=== PATIENT | female | born 1980 | race Caucasian/White ===

== ENCOUNTER 2016-04-07 19:38 | Emergency (ER) | payer SELFPAY ==
[~2016-04-07] VITALS: Ht 165.1 cm; Wt 57.6 kg
[2016-04-07 20:11] LABS: KETONES,URINE 40 (NEGATIVE); LEUKOCYTE ESTERASE ,URINE Negative (NEGATIVE); PH,URINE 5.5 (5.0-8.0)
[2016-04-07 20:12] LABS: ADD UA MICROSCOPIC YES; PREGNANCY TEST URINE QUAL POSITIVE (NEGATIVE)
[2016-04-07 20:14] LABS: ADD URINE CULTURE NO; WBC,URINE 0-2 /HPF (0-3)
[2016-04-07 20:28] LABS: BASOPHILS # (AUTO) 0.1 /CMM (0.0-0.2); BASOPHILS % (AUTO) 0.6 % (0.0-2.0); DIFF TOTAL % 100 %; EOSINOPHILS # (AUTO) 0.1 /CMM (0.0-0.7); EOSINOPHILS % (AUTO) 0.8 % (0.0-6.0); HEMATOCRIT 37 % (33-45); HEMOGLOBIN 12.9 g/dL (11.5-14.8); LYMPHOCYTES # (AUTO) 1.8 /CMM (0.8-4.8); LYMPHOCYTES % (AUTO) 18.8 % (20.0-44.0); MEAN CORPUSCULAR HEMOGLOBIN 31 PG (26.0-33.0); MEAN CORPUSCULAR HGB CONC 35 g/dl (31.0-36.0); MEAN CORPUSCULAR VOLUME 88 fL (82-100); MONOCYTES # (AUTO) 0.4 /CMM (0.1-1.30); MONOCYTES % (AUTO) 4.6 % (2.0-12.0); NEUTROPHILS # (AUTO) 7.2 /CMM (1.8-8.9); NEUTROPHILS % (AUTO) 75.2 % (43.0-81.0); PLATELET COUNT (AUTO) 180 /CMM (150-450); RED BLOOD CELL COUNT(AUTO) 4.21 MIL/uL (4.0-5.2); WHITE BLOOD COUNT (AUTO) 9.6 K/uL (4.3-11.0)
[2016-04-07] MEDS ORDERED: ACETAMINOPHEN 325 MG TABLET PO ONE (20:30)
[2016-04-07] MEDS ORDERED: ACETAMINOPHEN ES 500 MG TABLET ONE (20:33)
[2016-04-07 20:41] LABS: INR 1.06 (0.87-1.13); PROTHROMBIN TIME 11.1 SECS (9.5-12.7)
[2016-04-07 22:37] VITALS: BP 121/77
== END 2016-04-07 22:38 | disposition home or self-care (01) ==
LOC: ER 19:41
DX: O20.8 Other hemorrhage in early pregnancy (principal); R10.2 Pelvic and perineal pain
CPT/HCPCS: 36415; 76856; 81001; 84702; 84703 ×2; 85025; 85730; 99285; A4606; Z7610; 81000-TC

== ENCOUNTER 2016-04-09 19:27 | Emergency (ER) | payer MEDICAID ==
[~2016-04-09] VITALS: Ht 165.1 cm; Wt 52.2 kg
[2016-04-09 19:54] LABS: BASOPHILS # (AUTO) 0.1 /CMM (0.0-0.2); BASOPHILS % (AUTO) 0.7 % (0.0-2.0); DIFF TOTAL % 100 %; EOSINOPHILS # (AUTO) 0.2 /CMM (0.0-0.7); EOSINOPHILS % (AUTO) 1.4 % (0.0-6.0); HEMATOCRIT 45 % (33-45); HEMOGLOBIN 15.3 g/dL (11.5-14.8); LYMPHOCYTES # (AUTO) 2.4 /CMM (0.8-4.8); LYMPHOCYTES % (AUTO) 20.3 % (20.0-44.0); MEAN CORPUSCULAR HEMOGLOBIN 30 PG (26.0-33.0); MEAN CORPUSCULAR HGB CONC 34 g/dl (31.0-36.0); MEAN CORPUSCULAR VOLUME 88 fL (82-100); MONOCYTES # (AUTO) 0.7 /CMM (0.1-1.30); MONOCYTES % (AUTO) 5.6 % (2.0-12.0); NEUTROPHILS # (AUTO) 8.6 /CMM (1.8-8.9); PLATELET COUNT (AUTO) 228 /CMM (150-450); RED BLOOD CELL COUNT(AUTO) 5.11 MIL/uL (4.0-5.2)
[2016-04-09 20:10] VITALS: BP 132/78
== END 2016-04-09 20:30 | disposition home or self-care (01) ==
LOC: ER 19:36
DX: N93.9 Abnormal uterine and vaginal bleeding, unspecified (principal)
CPT/HCPCS: 36415; 84702; 85025; 99284; A4606; Z7610

== ENCOUNTER 2016-04-11 22:36 | Emergency (ER) | payer MEDICAID ==
[~2016-04-11] VITALS: Ht 162.6 cm; Wt 57.6 kg
[2016-04-12 01:14] VITALS: BP 114/80
== END 2016-04-12 01:16 | disposition home or self-care (01) ==
LOC: ER 22:38
DX: O03.4 Incomplete spontaneous abortion without complication (principal); Z90.79 Acquired absence of other genital organ(s)
CPT/HCPCS: 36415; 76856; 84702; 99285; A4606; Z7610

== ENCOUNTER 2016-11-19 14:22 | Emergency (ER) | payer MEDICAID, OTHER ==
[~2016-11-19] VITALS: Ht 167.6 cm; Wt 54.4 kg
[2016-11-19 14:40] VITALS: BP 139/78
== END 2016-11-19 15:39 | disposition home or self-care (01) ==
LOC: ER 14:29
DX: S61.011D Laceration without foreign body of right thumb without damage to nail, subsequent encounter (principal); W26.8XXD Contact with other sharp object(s), not elsewhere classified, subsequent encounter; Y93.89 Activity, other specified; Y92.89 Other specified places as the place of occurrence of the external cause; Y99.9 Unspecified external cause status
CPT/HCPCS: A4606; Z7502; Z7610

== ENCOUNTER 2016-11-24 09:35 | Emergency (ER) | payer OTHER ==
[~2016-11-24] VITALS: Ht 170.2 cm; Wt 56.7 kg
[2016-11-24 09:46] VITALS: BP 114/76
== END 2016-11-24 10:00 | disposition home or self-care (01) ==
LOC: ER 09:40
DX: S61.011D Laceration without foreign body of right thumb without damage to nail, subsequent encounter (principal)
CPT/HCPCS: A4606; Z7502; Z7610

== ENCOUNTER 2017-07-31 20:45 | Emergency (ER) | payer OTHER ==
[~2017-07-31] VITALS: Ht 167.6 cm; Wt 59.0 kg
[2017-07-31 21:45] VITALS: BP 143/101
== END 2017-07-31 22:51 | disposition home or self-care (01) ==
LOC: ER 20:52
DX: N92.0 Excessive and frequent menstruation with regular cycle (principal); R10.2 Pelvic and perineal pain
CPT/HCPCS: 84703-TC; A4606; Z7610

== ENCOUNTER 2020-01-06 14:59 | Inpatient (IN) | payer OTHER, SELFPAY ==
[~2020-01-06] VITALS: Ht 170.2 cm; Wt 68.0 kg
[2020-01-06] MEDS ORDERED: ONDANSETRON HCL/PF 4 MG/2 ML VIAL ONE (15:24)
--- NOTE | 2020-01-06 15:30 | NUR ---
PHUC FROM HOME TO ER BED 7. AAOX4. NO TIN RESP DISTRESS, BREATHING EVEN AND UNLABORED. AMBULATORY. CAME IN FOR NAUEA, MULTIPLE EPISODES OF VOMMITING AND DIARRHEA AND CHILLS WHICH STARTED THIS MORNING. PT IS NOTED ANXIOUS. MD WAS AT THE BEDSIDE FOR EVAL. ORDERS RECEIVED NOTED AND CARRIED OUT. IV LINE ESTABLISHED ON L AC 20G. BLOOD DRAWN AND SENT TO LAB. ON MONITOR.
[2020-01-06] MEDS ORDERED: LOPERAMIDE HCL (2 MG CAP) 2 MG CAPSULE PO ONE (16:00)
[2020-01-06] MEDS ORDERED: PANTOPRAZOLE 40 MG VIAL IV ONE (16:00)
[2020-01-06] MEDS ORDERED: IV NS 0.9% 1,000 ML IV ONE (16:00)
[2020-01-06] MEDS ORDERED: ONDANSETRON HCL/PF - ER 4 MG/2 ML VIAL IV ONE (16:00)
[2020-01-06] MEDS ORDERED: LOPERAMIDE HCL (2 MG CAP) 2 MG CAPSULE ONE (16:06)
[2020-01-06] MEDS ORDERED: PANTOPRAZOLE 40 MG VIAL ONE (16:06)
[2020-01-06 16:18] LABS: BASOPHILS # (AUTO) 0.1 /CMM (0.0-0.2); BASOPHILS % (AUTO) 0.3 % (0.0-2.0); HEMATOCRIT 41 % (33-45); HEMOGLOBIN 13.8 g/dL (11.5-14.8); LYMPHOCYTES # (AUTO) 0.9 /CMM (0.8-4.8); LYMPHOCYTES % (AUTO) 4.2 % (20.0-44.0); MEAN CORPUSCULAR HGB CONC 34 g/dl (31.0-36.0); MEAN CORPUSCULAR VOLUME 88 fL (82-100); MONOCYTES # (AUTO) 0.6 /CMM (0.1-1.30); MONOCYTES % (AUTO) 2.7 % (2.0-12.0); NEUTROPHILS # (AUTO) 19.5 /CMM (1.8-8.9); NEUTROPHILS % (AUTO) 92.8 % (43.0-81.0); PLATELET COUNT (AUTO) 236 /CMM (150-450); RED BLOOD CELL COUNT(AUTO) 4.66 MIL/uL (4.0-5.2); WHITE BLOOD COUNT (AUTO) 21.1 K/uL (4.3-11.0)
[2020-01-06 16:53] LABS: BILIRUBIN,URINE SMALL (NEGATIVE); BLOOD, URINE Trace-intact Ery/uL (NEGATIVE); COLOR,URINE Dark (YELLOW); LEUKOCYTE ESTERASE ,URINE Negative (NEGATIVE); NITRITE, URINE Negative (NEGATIVE); PH,URINE 8.5 (5.0-8.0); PROTEIN,URINE 100 mg/dl (NEGATIVE); UGLUCOSE Negative (NEGATIVE); UROBILINOGEN,URINE 0.2 EU/dL (0.2)
[2020-01-06] MEDS ORDERED: PIPERACILLIN /TAZOBACTAM 3.375 G in IV D5W 50 ML IV ONE (17:00)
[2020-01-06 17:07] LABS: CALCIUM, SERUM 8.9 mg/dL (8.5-10.1)
[2020-01-06 17:14] LABS: ALBUMIN 4.1 g/dL (3.4-5.0); BILIRUBIN,DIRECT 0.2 mg/dL (0.0-0.2); BILIRUBIN,TOTAL 1.3 mg/dL (0.2-1.0); TOTAL PROTEIN, SERUM 7.4 g/dL (6.4-8.2)
--- NOTE | 2020-01-06 17:15 | NUR ---
brine room laborer at bedside for blood culture draw and lactic acid
[2020-01-06] MEDS ORDERED: CT SWABBABLE VALVE TRANS SET 1 EA INFUS.SET MC ONE (17:16)
[2020-01-06] MEDS ORDERED: IV NS 0.9% 250 ML IV ONE (17:16)
[2020-01-06] MEDS ORDERED: IOHEXOL-300 100 ML VIAL IV ONE (17:16)
[2020-01-06 17:21] LABS: BACTERIA,URINE Few /HPF (None Seen); RBC,URINE 0-2 /HPF (0-2); SQUAMOUS EPITHELIAL CELL,UR Many /HPF (None Seen); WBC,URINE 0-2 /HPF (0-3)
--- NOTE | 2020-01-06 17:41 | NUR ---
followed up with lab regarding the urine
--- NOTE | 2020-01-06 17:58 | NUR ---
covid swab done and sent to lab
--- NOTE | 2020-01-06 18:07 | NUR ---
BACK FROM CT ON SUSHMA
[2020-01-06] MEDS ORDERED: Z GUARD REMEDY 2 OZ OINT TP PRN (19:00)
[2020-01-06] MEDS ORDERED: MAG HYDROX/AL HYDROX/SIMETH 30 ML UDC PO PRN (19:00)
[2020-01-06] MEDS ORDERED: ACETAMINOPHEN 325 MG TABLET PO PRN (19:00)
[2020-01-06] MEDS ORDERED: MORPHINE SULFATE INJ 2 MG/ML DISP.SYRIN IV PRN (19:00)
[2020-01-06] MEDS ORDERED: ONDANSETRON HCL/PF 4 MG/2 ML VIAL IVP PRN (19:00)
[2020-01-06] MEDS ORDERED: MAGNESIUM HYDROXIDE 30 ML UDC PO PRN (19:00)
--- NOTE | 2020-01-06 19:00 | NUR ---
MD DID NOT ORDER ANY FLUID REPLACEMENT D/T NO LACTIC ACID ELEVATION
[2020-01-06] MEDS ORDERED: POTASSIUM CL. PREMIX PERIPHER. 200 ML ONE (19:04)
[2020-01-06] MEDS: POTASSIUM CL. PREMIX PERIPHER. 50 ML IV SCH ×4 (19:16→22:31)
--- NOTE | 2020-01-06 19:35 | NUR ---
REPORT GIVEN TO JOSIE RUIZ FOR JESSE
[2020-01-06 20:00] VITALS: BP 112/64
--- NOTE | 2020-01-06 20:00 | NUR ---
MS HOLE DIGGER TRUCK DRIVER NOTES PATIENT TRANSFERRED FROM ER IN STABLE CONDITION. A/OX4, AMBULATORY. STABLE ON RA; NO S/S OF ACUTE RESPIRATORY DISTRESS; BREATHING IS EVEN AND UNLABORED. NO C/O PAIN OR N/V AT THIS TIME. IV PRESENT ON LEFT AC, SIZE 18, INTACT & PATENT WITH 10 MEQ KCL RUNNING AT 8ML/HR. SKIN DRY AND INTACT. MRSA SWAB COMPLETED IN ER. PATIENT REPORTS NO HOME MEDS. ADMITTED ORDERS RECEIVED. BELONGINGS REVIEWED WITH PATIENT, LIST PLACED IN CHART. SAFETY MEASURES IN PLACE AND PATIENT'S NEEDS MET. BED LOCKED, HOB ELEVATED, SIDE RAILS X2, CALL LIGHT WITHIN REACH. WILL CONTINUE TO MONITOR.
--- NOTE | 2020-01-06 20:05 | NUR ---
PT TRANSPORTED TO UNIT ON GURNEY WITH RN AT BEDSIDE. PT IS IN STABLE CONDITION FOR TRANSPORT. NAD NOTED DURING TRANSPORT. PT AMBULATED FROM GURNEY TO BED W/O ASSIST ON STEADY GAIT
[2020-01-06] MEDS: IV NS 0.9% 1,000 ML IV SCH (20:19)
[2020-01-07 04:00] VITALS: BP 80/88
[2020-01-07] MEDS: IV NS 0.9% 1,000 ML IV SCH ×2 (05:03→15:00)
[2020-01-07 06:15] VITALS: BP 113/73
[2020-01-07 06:27] LABS: BASOPHILS # (AUTO) 0.1 /CMM (0.0-0.2); BASOPHILS % (AUTO) 0.5 % (0.0-2.0); EOSINOPHILS % (AUTO) 0.9 % (0.0-6.0); HEMATOCRIT 37 % (33-45); HEMOGLOBIN 12.4 g/dL (11.5-14.8); LYMPHOCYTES # (AUTO) 2.1 /CMM (0.8-4.8); LYMPHOCYTES % (AUTO) 16.7 % (20.0-44.0); MEAN CORPUSCULAR HGB CONC 34 g/dl (31.0-36.0); MEAN CORPUSCULAR VOLUME 88 fL (82-100); MONOCYTES # (AUTO) 0.9 /CMM (0.1-1.30); MONOCYTES % (AUTO) 7.3 % (2.0-12.0); NEUTROPHILS # (AUTO) 9.3 /CMM (1.8-8.9); NEUTROPHILS % (AUTO) 74.6 % (43.0-81.0); PLATELET COUNT (AUTO) 167 /CMM (150-450); RED BLOOD CELL COUNT(AUTO) 4.13 MIL/uL (4.0-5.2); WHITE BLOOD COUNT (AUTO) 12.4 K/uL (4.3-11.0)
[2020-01-07 06:30] LABS: CALCIUM, SERUM 7.8 mg/dL (8.5-10.1); CREATININE 0.6 mg/dL (0.6-1.3); MAGNESIUM 2.1 mg/dL (1.8-2.4); PHOSPHORUS 2.7 mg/dL (2.5-4.9); POTASSIUM 3.5 mmol/L (3.5-5.1)
[2020-01-07 06:39] LABS: THYROID STIMULATING HORMONE 1.569 uIU/mL (0.358-3.74)
--- NOTE | 2020-01-07 07:17 | NUR ---
MS RN CLOSING NOTES PATIENT SLEEPING, EASY TO AWAKEN. A/OX4. STABLE ON RA. NO S/S OF SOB OR PAIN NOTED; BREATHING IS EVEN AND UNLABORED. NO EPISODES OF N/V/D DURING SHIFT. IV ON LEFT AC SIZE 18, INTACT & PATENT WITH NS RUNNING AT 100 ML/HR. SAFETY MEASURES IN PLACE AND PATIENT'S NEEDS MET. BED LOCKED, SIDE RAILS X2, CALL LIGHT WITHIN REACH. WILL ENDORSE TO DAY SHIFT RN PLAN OF CARE.
--- NOTE | 2020-01-07 07:20 | NUR ---
ms rn received on bed,awake, alert,oriented x4,not in any form of distress, respirations even and unlabored,no sob noted, lungs are clear abdomen soft,positive bowel sounds denies pain at this time.
[2020-01-07 08:54] VITALS: BP 104/68
[2020-01-07] MEDS ORDERED: INFLUENZA VACCINE 2020-21 0.5 ML DISP.SYRIN IM ONE (09:00)
--- NOTE | 2020-01-07 09:00 | NUR ---
ms prakash breakfast served,due meds given,tolerated well.
--- NOTE | 2020-01-07 12:00 | NUR ---
ms rn was seen by deepak cloth printing back tender, to be discharge if pt. can tolerate po soft diet.
--- NOTE | 2020-01-07 13:00 | NUR ---
ms rn patient tolerated soft diet w/o nausea, will be discharge this pm.
[2020-01-07 16:40] VITALS: BP 114/64
--- NOTE | 2020-01-07 17:20 | NUR ---
ms rn received on bed,awake, alert,oriented x4,not in any form of distress, respirations even and unlabored,no sob noted, lungs are clear abdomen soft,positive bowel sounds denies pain at this time. Addendum: 01/07/20 at 1828 by PHILLY WAGNER RN wrong time documented.
--- NOTE | 2020-01-07 18:17 | NUR ---
ms rn patient was fruit picker by , discharge instructions given,w/ prescription of zofran,all needs attended.
== END 2020-01-07 18:25 | disposition home or self-care (01) | DRG 392 ==
LOC: ER 15:01 → MED 18:30
PROVIDERS: ADMIT Internal Medicine; ATTEND Nurse Practitioner Acute Care
DX: K58.0 Irritable bowel syndrome with diarrhea (principal); D72.829 Elevated white blood cell count, unspecified; F12.90 Cannabis use, unspecified, uncomplicated
CPT/HCPCS: 36415; 71045-TC; 74178; 76705-TC; 80048-TC; 80076-TC; 81001; 83605-TC; 83690-TC; 83735-TC; 84100-TC; 84443-TC; 84702-TC; 84703-TC; 85025-TC; 85730-TC; 87040-TC; 87081-TC; 87086-TC; C9113; C9803; G0378; G0480; J2405; J2543; J3480; J7030; J7050; J7060; Q2036; Q9967